=== PATIENT | female | born 1985 | race Two or more races ===

== ENCOUNTER 2022-07-11 09:31 | Emergency (ER) | payer OTHER ==
[~2022-07-11] VITALS: Ht 165.1 cm; Wt 96.2 kg
== END 2022-07-11 14:13 | disposition home or self-care (01) ==
LOC: ER 09:31
DX: O26.892 Other specified pregnancy related conditions, second trimester (principal); Z3A.14 14 weeks gestation of pregnancy; Z91.048 Other nonmedicinal substance allergy status

== ENCOUNTER 2022-09-26 17:26 | Outpatient (CLI) | payer OTHER ==
[2022-09-26] MEDS ORDERED: PRENATAL TABLE1 EAC1 PO (17:44)
[2022-09-26] MEDS ORDERED: ENDOMETRIN100 MG VAG (17:44)
== END 2022-09-27 10:33 | disposition home or self-care (01) ==
LOC: OBS/DEL 17:26 → LDR 17:53 → OBS/DEL 17:55
PROVIDERS: ATTEND Obstetrics & Gynecology
DX: O26.892 Other specified pregnancy related conditions, second trimester (principal); N89.8 Other specified noninflammatory disorders of vagina; Z3A.24 24 weeks gestation of pregnancy; Z91.09 Other allergy status, other than to drugs and biological substances

== ENCOUNTER → 2022-09-26 | Emergency (ER) | payer OTHER ==
[~2022-09-26] MED LIST: ENDOMETRIN100 MG VAG; PRENATAL TABLE1 EAC1 PO
== END | disposition home or self-care (01) ==
LOC: ER 14:27
DX: O26.892 Other specified pregnancy related conditions, second trimester (principal); Z3A.24 24 weeks gestation of pregnancy; Z91.048 Other nonmedicinal substance allergy status

== ENCOUNTER 2023-01-04 08:08 | Inpatient (IN) | payer OTHER ==
[~2023-01-04] VITALS: Ht 165.1 cm; Wt 104.3 kg
[2023-01-04 08:56] LABS: HEMATOCRIT 37.6 % (36.0-45.00); HEMOGLOBIN 12.7 g/dL (12.0-15.00); MEAN CELL VOLUME 87.3 fL (80.00-100.00); MEAN CORPUSCULAR HEMOGLOBIN 29.5 pg (27.00-32.0); MEAN CORPUSCULAR HGB CONC 33.7 g/dl (32.0-36.0); PLATELET COUNT 227 K/uL (150-450); RED BLOOD COUNT 4.31 M/uL (4.00-6.00); RED CELL DISTRIBUTION WIDTH 14.5 % (11.5-14.5)
[2023-01-04 08:56] LABS: PH,URINE 6.5 (5.0-8.0); URINE APPEARANCE Clear; URINE BILIRRUBIN Negative (NEGATIVE); URINE BLOOD NHT; URINE COLOR Yellow; URINE GLUCOSE Negative (NEGATIVE); URINE LEUKOCYTE Negative; URINE NITRATE Negative; URINE PROTEIN Negative (NEGATIVE)
[2023-01-04 09:05] LABS: URINE BACTERIA 171.2 uL (0.0-1933); URINE EPITHELIAL CELLS 7.4 uL (0.0-38.8); URINE RBC 19.8 uL (0.0-20.8); URINE WBC 20.9 uL (0.0-23.2)
[2023-01-04 09:24] LABS: ALBUMIN 2.8 gm/dL (3.4-5.0); BILIRUBIN TOTAL 0.32 mg/dL (0.3-1.2); CALCIUM 9.1 mg/dL (8.5-10.1); CREATININE SERUM 0.46 mg/dL (0.55-1.02); GFR 152.03; GLOBULINA 3.5 G/DL (2.4-3.5); POTASSIUM 4.33 mEq/L (3.5-5.1); TOTAL PROTEIN 6.3 gm/dL (6.4-8.2)
[2023-01-04 09:44] LABS: INR < 0.93; PARTIAL THROMBOPLASTIN TIME 26.7 SECONDS (22.0-34.0)
[2023-01-04 10:37] LABS: PROTHROMBIN TIME 9.7 SECONDS (9.0-11.5)
[2023-01-04 11:49] LABS: ABG PH 7.328 (7.35-7.45); ABG pCO2 39.3 mmHg (35-45)
[2023-01-04 11:50] LABS: ABG PO2 42.7 mmHg (80-100); BASE EXCESS -5.3 mmol/l; BICARBONATE 20.1 mmol/l (23-25); SaO2 73.3 %; Tco2 21.3 mmol/l; o2 21 %
[2023-01-04 14:57] LABS: HEMATOCRIT 33.5 % (36.0-45.00); HEMOGLOBIN 11.5 g/dL (12.0-15.00); MEAN CELL VOLUME 85.9 fL (80.00-100.00); MEAN CORPUSCULAR HEMOGLOBIN 29.6 pg (27.00-32.0); MEAN CORPUSCULAR HGB CONC 34.5 g/dl (32.0-36.0); PLATELET COUNT 217 K/uL (150-450); RED CELL DISTRIBUTION WIDTH 14.3 % (11.5-14.5)
== END 2023-01-06 11:02 | disposition home or self-care (01) | DRG 807 ==
LOC: LDR 08:08 → OB/GYN 08:08
PROVIDERS: ADMIT Obstetrics & Gynecology; ATTEND Obstetrics & Gynecology
PROC: 10E0XZZ Delivery of Products of Conception, External Approach (ICD-10-PCS; principal; 2023-01-04)
PROC: 0HQ9XZZ Repair Perineum Skin, External Approach (ICD-10-PCS; 2023-01-04)
PROC: 4A1HXCZ Monitoring of Products of Conception, Cardiac Rate, External Approach (ICD-10-PCS; 2023-01-04)
DX: O70.0 First degree perineal laceration during delivery (principal); Z37.0 Single live birth; Z3A.38 38 weeks gestation of pregnancy; Z20.822 Contact with and (suspected) exposure to COVID-19